=== PATIENT | male | born 1990 | race Caucasian/White ===

== ENCOUNTER 2016-08-14 00:51 | Emergency (ER) | payer BC ==
[~2016-08-14] VITALS: Ht 185.4 cm; Wt 101.5 kg
[~2016-08-14 00:51] MED LIST: DIPH25CA37 PO
[2016-08-14 00:59] VITALS: TEMP 36.6; Ht 185.4 cm; Wt 101.5 kg
--- NOTE | 2016-08-14 01:25 | EMERGENCY ROOM VISIT NOTE ---
History Report prepared by Scribe: Aurora Mena Under the Supervision of: Dr. Amena Alvarenga M.D. First contact with patient: 01:18 Chief Complaint: KNEEPAIN Stated Complaint: SWOLLEN LEFT KNEE WITH PAIN History of Present Illness The patient is a 25 year old male who presents to the Emergency Room with complaints of left knee pain that has been constant since a fall yesterday afternoon. The patient states that he was walking up a fire escape to get to his apartment and fell directly on his knee on a landing. He denies hitting his head or any other injuries during the fall. Since the fall, he has noticed some increased swelling to his knee. He does not have a history of left knee injuries. Source of History: patient Onset: yesterday afternoon Position: leg (left) Quality: other (swollen) Timing: constant Review of Systems See HPI for pertinent positives & negatives. A total of 6 systems reviewed and were otherwise negative. Past Medical & Surgical Medical Problems: (1) Constipation Family History Kidney disease Kidney stones Social History Smoking Status: Never Smoker Alcohol Use: none Drug Use: none Marital Status: Housing Status: lives with family Occupation Status: employed Current/Historical Medications No Active Prescriptions or Reported Meds Allergies Coded Allergies: [place] (Verified Allergy, Unknown, ANAPHYLAXIS, 08/14/16) Physical Exam Vital Signs Date Time Temp Pulse Resp B/P Pulse Ox O2 Delivery O2 Flow Rate FiO2 08/14/16 02:23 73 18 143/82 99 Room Air 08/14/16 00:59 36.6 72 18 139/76 96 Room Air Physical Exam Vital signs reviewed. General: Well-appearing 25 year old male, in no significant distress. HEENT: No scleral icterus, PERRLA, neck supple. Atraumatic. Musculoskeletal: Swelling to the prepatellar area with a superficial abrasion, mild tenderness to palpation, full range of motion, knee is stable to valgus and varus stress and negative anterior drawer sign. Neurologic: Patient awake alert and oriented x 3 Skin: Warm, dry, no rash Medical Decision & Procedures ER Provider Diagnostic Interpretation: Knee x-ray 3 views per my interpretation: No fracture, no dislocation, no significant joint effusion, soft tissue swelling over the patella. ED Course 0121: The patient was evaluated in room C2. A complete history and physical examination was performed. 0232: Upon reevaluation, the patient was resting comfortably. I discussed findings with him. He verbalized agreement of the treatment plan. The patient was discharged home. Medical Decision Differential diagnosis: Etiologies such as fracture, dislocation, neurovascular compromise, compartment syndrome, soft tissue injury, as well as others were entertained. This patient was evaluated and appeared to be in no significant distress. Physical examination reveals soft tissue swelling over the patella of the left knee. X-ray reveals no evidence of acute fracture to my interpretation. I suspect the patient is suffering from a contusion/hematoma to the prepatellar soft tissues. Patient was advised to ice and elevate the knee as much as possible. He will use ibuprofen as needed for pain. He will follow-up with his physician for reevaluation orthopedics as necessary. He will return to the ER for worsening of symptoms or any medical concerns. Impression Primary Impression: Contusion of left knee Scribe Attestation The scribe's documentation has been prepared under my direction and personally reviewed by me in its entirety. I confirm that the note above accurately reflects all work, treatment, procedures, and medical decision making performed by me. Departure Information Dispostion Home / Self-Care Prescriptions No Active Prescriptions or Reported Meds Referrals No Doctor, Assigned (PCP) Patient Instructions [facility] Additional Instructions Diagnosis: Left knee contusion Ibuprofen 600 mg every 6 hours as needed for pain with food. Ice and elevate. Follow-up with your physician this week for reevaluation. Return to the ER for worsening of symptoms or any medical concerns. Problem Qualifiers Primary Impression: Contusion of left knee Encounter type: initial encounter Qualified Codes: S80.02XA - Contusion of left knee, initial encounter
[2016-08-14 02:23] VITALS: BP 143/82; PULSE 73; O2SAT 99
--- NOTE | 2016-08-14 08:00 | DIAGNOSTIC IMAGING REPORT ---
LEFT KNEE 3 VIEWS CLINICAL HISTORY: Patellar pain following injury. COMPARISON: None FINDINGS: Alignment of the left knee is anatomic. No acute fracture is identified. There is moderate prepatellar soft tissue swelling. There is no definite joint effusion. A sclerotic focus within the proximal shaft of the left tibia has benign imaging characteristics. IMPRESSION: 1. No acute fracture. 2. Moderate prepatellar soft tissue swelling. Electronically signed by: Dieter Adkins M.D. 08/14/2016 7:59 AM Dictated Date/Time: 08/14/2016 7:57 AM
== END 2016-08-14 02:35 | disposition home or self-care (01) ==
LOC: C.EDB 00:53 → C.EDC 02:35
DX: S80.02XA Contusion of left knee, initial encounter (principal); W19.XXXA Unspecified fall, initial encounter; Z84.1 Family history of disorders of kidney and ureter